=== PATIENT | male | born 1975 | race Caucasian/White ===

== ENCOUNTER 2017-04-15 12:29 | Emergency (ER) | payer BC ==
[2017-04-15 12:52] VITALS: BP 141/84
--- NOTE | 2017-04-15 14:01 | UC ---
Rachel Chang SooYoung, scribed for Jannet Almeida MD on 04/15/17 at 1329 . Respiratory Complaint HPI - HPI Summary HPI Summary: A 41 y/o M [place] [facility] [place]o sore throat onset five days ago. Pt reports rhinorrhea, diffuse body aches onset yesterday, post-nasal drip, mild bilat ear ache, sinus pain, chills. Pt denies fever, rash. He did get the flu shot this year. Pt states thought was getting darin, but yesterday started to feel "real bad." Pt reports sinus congestion, cough with yellow sputum. Pt is concerned about infection that may infect his immuno-compromised daughter and mother. States wants to know if they need tamiflu (daughter IDDM, mom scleroderma) He notes his coworkers have been ill recently. He hasn't taken any OTC meds. Non- smoker, non drinker. Patient's medication reviewed this visit. - History of Current Complaint Chief Complaint: UCRespiratory Stated Complaint: SORE THROAT,STUFFY NOSE,ACHES Time Seen by Provider: 04/15/17 13:15 Hx Obtained From: Patient Onset/Duration: Gradual Onset, Lasting Days, Still Present Timing: Constant Severity Initially: Moderate Severity Currently: Moderate Pain Intensity: 5 Pain Scale Used: 0-10 Numeric Character: Cough: Productive - yellow/green Associated Signs And Symptoms: Positive: Chills, URI, Sinus Discomfort. Negative: Fever - Allergies/Home Medications Allergies/Adverse Reactions: Allergies Allergy/AdvReac Type Severity Reaction Status Date / Time No Known Allergies Allergy Verified 11/20/15 10:05 PMH/Surg Hx/FS Hx/Imm Hx Previously Healthy: Yes - Surgical History Surgical History: None - Family History Known Family History: Positive: Cardiac Disease Family History: noncontributory - Social History Occupation: Employed Full-time Lives: With Family Alcohol Use: Rare Substance Use Type: None Smoking Status (MU): Never Smoked Tobacco - Immunization History Most Recent Influenza Vaccination: GOT IT FOR THIS SEASON Review of Systems Constitutional: Chills, Fatigue Skin: Negative Eyes: Negative ENT: Sore Throat, Ear Ache, Nasal Discharge - and post-nasal drip, Other - sinus pain Respiratory: Cough - yellow sputum Cardiovascular: Negative Gastrointestinal: Negative Genitourinary: Negative Motor: Negative Neurovascular: Negative Musculoskeletal: Other: - pos: general body aches Neurological: Negative Psychological: Negative All Other Systems Reviewed And Are Negative: Yes Physical Exam Triage Information Reviewed: Yes Appearance: Well-Appearing - congestion, cough, Well-Nourished Vital Signs: Initial Vital Signs Temp 98.8 F 04/15/17 12:49 Pulse 95 04/15/17 12:49 Resp 17 04/15/17 12:49 BP 141/84 04/15/17 12:49 Pulse Ox 99 04/15/17 12:49 Vital Signs Reviewed: Yes Eye Exam: Normal Eyes: Positive: Conjunctiva Clear ENT: Positive: Pharynx normal, Nasal congestion - turbinates inflammed + PND no erythema, no exudate, Nasal drainage. Negative: TMs normal - + fluid b/l TM R>L no erythema Dental Exam: Normal Neck exam: Normal Neck: Positive: Supple, Nontender, No Lymphadenopathy Respiratory Exam: Normal Respiratory: Positive: Chest non-tender, Lungs clear, Normal breath sounds, No respiratory distress Cardiovascular Exam: Normal Cardiovascular: Positive: RRR, No Murmur Abdominal Exam: Normal Abdomen Description: Positive: Nontender, No Organomegaly, Soft Bowel Sounds: Positive: Present Musculoskeletal Exam: Normal Neurological Exam: Normal Psychological Exam: Normal UC Diagnostic Evaluation - Laboratory O2 Sat by Pulse Oximetry: 99 Re-Evaluation - Re-Evaluation First Eval Comment: reviewed labs with pt - neg strep,neg flu. will give z pack for sinusitis, bronchitis. flonase. secretion precautions. pt comfortable and in agreement with plan Respiratory Course/Dx - Course Course Of Treatment: Blood pressure noted and patient informed to follow up with PCP. Pt with head congesiton, productive cough increasing x 6 days. Pt with fluid in ears, boggy turbinates with PND Pt with family who are immunocompromised. Will check flu, strep. if neg, anticipate abx, flonase - Differential Dx/Diagnosis Provider Diagnoses: sinusitis. URI Discharge - Discharge Plan Condition: Stable Disposition: HOME Prescriptions: Azithromycin TAB* [Zithromax TAB (Z-JAKOB) 250 mg #6 tabs] 2 tab PO .TODAY, THEN 1 DAILY #1 jakob Fluticasone NASAL SPRAY 50MCG* [Flonase NASAL SPRAY 50MCG*] 1 spray BOTH NARES DAILY #1 btl Patient Education Materials: Sinusitis (ED) Referrals: Vibha Glasgow MD [Primary Care Provider] - Additional Instructions: - Stay well hydrated. Drink plenty of non-alcoholic, non-caffinated beverages - Use nasal spray as prescribed - Okay to take decongestant such as Claritin-D, Frida-D - Take antibiotics as prescribed until gone - After you have been on antibiotics for 2 days - change your toothbrush and your pillowcase. These infections are spread by secretions - do NOT share eating or drinking utensils - clean items you share with other people such as cell phones, computer mouse, TV remote, computer tablets, etc - If your symptoms persist, contact your doctor to schedule a follow-up appointment. Contact your doctor or return with questions or concerns The documentation as recorded by the Rachel frank SooYoung accurately reflects the service I personally performed and the decisions made by me, Jannet Almeida MD.
== END 2017-04-15 14:31 | disposition home or self-care (01) ==
LOC: UCEAST 12:29
DX: J32.9 Chronic sinusitis, unspecified (principal); J06.9 Acute upper respiratory infection, unspecified
CPT/HCPCS: 87502; 87651; 99211; G0463

== ENCOUNTER 2018-11-06 14:13 | Emergency (ER) | payer BC ==
[2018-11-06 14:54] VITALS: BP 132/89
--- NOTE | 2018-11-06 17:38 | UC ---
UC General HPI - HPI Summary HPI Summary: 2-3 DAYS OF MUTED SENSATION TO RIGHT ANTERIOR THIGH. DENIES ANY INJURY OR TRAUMA. 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 HAS SOME SLIGHT BRUISING TO THE AREA BUT DENIES ANY RASHES. NO PAIN. NO FEVER. NO FOCAL WEAKNESS. NO NUMBNESS OR TINGLING IN THE DISTAL EXTREMITIES. DENIES ANY SADDLE ANESTHESIA OR LOSS OF BOWEL/BLADDER CONTROL. - History of Current Complaint Chief Complaint: UCLowerExtremity Stated Complaint: LEG NUMBNESS Time Seen by Provider: 11/06/18 14:45 Hx Obtained From: Patient Onset/Duration: Gradual Onset, Lasting Days, Still Present Timing: Constant Onset Severity: Mild Current Severity: Mild Pain Intensity: 0 Associated Signs & Symptoms: Negative: Abdominal Pain, Dizziness, Fever, Syncope , Weakness - Allergy/Home Medications Allergies/Adverse Reactions: Allergies Allergy/AdvReac Type Severity Reaction Status Date / Time No Known Allergies Allergy Verified 11/06/18 14:54 Home Medications: Home Medications NK [No Home Medications Reported] 11/06/18 [History Confirmed 11/06/18] PMH/Surg Hx/FS Hx/Imm Hx Previously Healthy: Yes - Surgical History Surgical History: None - Family History Known Family History: Positive: Cardiac Disease - Social History Alcohol Use: Occasionally Substance Use Type: None Smoking Status (MU): Never Smoked Tobacco - Immunization History Most Recent Influenza Vaccination: GOT IT FOR THIS SEASON Review of Systems All Other Systems Reviewed And Are Negative: Yes Constitutional: Positive: Negative Skin: Positive: Bruising Respiratory: Positive: Negative Cardiovascular: Positive: Negative Gastrointestinal: Positive: Negative Neurological: Positive: Paresthesia Physical Exam Triage Information Reviewed: Yes Appearance: Well-Appearing, No Pain Distress, Well-Nourished Vital Signs: Initial Vital Signs Temp 97.9 F 11/06/18 14:47 Pulse 82 11/06/18 14:47 Resp 16 11/06/18 14:47 BP 132/89 11/06/18 14:47 Pulse Ox 99 11/06/18 14:47 Vital Signs Reviewed: Yes Eyes: Positive: Conjunctiva Clear ENT: Positive: Hearing grossly normal Neck: Positive: Supple Respiratory: Positive: No respiratory distress, No accessory muscle use Cardiovascular: Positive: Pulses Normal Abdomen Description: Positive: Soft Musculoskeletal: Positive: ROM Intact, No Edema, Other: - NOT TENDER OVER SOFT TISSUES OR BONES OF RLE Neurological: Positive: Alert, Other: - SENSATION INTACT TO SHARP/DULL RIGHT ANTERIOR THIGH BUT PT REPORTS IT FEELS "DIFFERENT" Psychological: Positive: Age Appropriate Behavior Skin: Positive: Other - FAINT BRUISING OVER INVOLVED AREA RIGHT ANTERIOR THIGH Course/Dx - Diagnoses Provider Diagnosis: Paresthesia of right leg Discharge - Sign-Out/Discharge Documenting (check all that apply): Patient Departure All imaging exams completed and their final reports reviewed: No Studies - Discharge Plan Condition: Stable Disposition: HOME Patient Education Materials: Paresthesia (ED) Referrals: Marcus Gonzalez MD [Medical Doctor] - 1 Week Vibha Glasgow MD [Primary Care Provider] - 1 Week Additional Instructions: UNCLEAR ETIOLOGY OF YOUR SYMPTOMS TODAY. CONSIDER SOME TYPE OF NERVE PALSY. HOPEFULLY THIS WILL RESOLVE IN A FEW DAYS. CALL YOUR PCP AND NEURO TO SCHEDULE APPTS FOR EVALUATION. YOU MAY BENEFIT FROM IMAGING. GO TO THE ER WITHOUT FAIL IF YOU DEVELOP SPREADING NUMBNESS, PAIN, SWELLING OF THE LEG, FEVER OR ANY OTHER CONCERNING SYMPTOMS. - Billing Disposition and Condition Condition: STABLE Disposition: Home
== END 2018-11-06 15:45 | disposition home or self-care (01) ==
LOC: UCEAST 14:13
DX: R20.2 Paresthesia of skin (principal)
CPT/HCPCS: 99211; G0463

== ENCOUNTER 2019-03-18 12:38 | Emergency (ER) | payer SELFPAY ==
[2019-03-18 13:03] VITALS: BP 135/87
[2019-03-18] MEDS ORDERED: Fluorescein Sodium TOPICAL* 1 MG TEST STRIP OPHTHALMIC ONE (13:03)
[2019-03-18] MEDS ORDERED: Tetracaine 0.5% OPTH.SOL 4 ML* 1 DROP BTL RIGHT EYE ONE (13:03)
--- NOTE | 2019-03-18 13:40 | UC ---
Eye Complaint HPI - HPI Summary HPI Summary: 43-year-old male comes in with a chief complaint of injury to the right eye. Just prior to arrival today at work patient was heating up some solder with a soldering iron which goes up to 700F when a piece of solder flew into his right eye. He immediately rinsed it for 15 minutes. He describes the eye is more of a discomfort not of pain. Denies any vision loss or change. He does not have any contacts. After the washing the discomfort has gradually increased but he still does not describe it as pain. He is worried about the possibility of foreign body in the eye. - History of Current Complaint Chief Complaint: UCEye Stated Complaint: EYE COMPLAINT Time Seen by Provider: 03/18/19 13:03 Pain Intensity: 0 - Allergies/Home Medications Allergies/Adverse Reactions: Allergies Allergy/AdvReac Type Severity Reaction Status Date / Time No Known Allergies Allergy Verified 03/18/19 13:03 PMH/Surg Hx/FS Hx/Imm Hx Previously Healthy: Yes - Surgical History Surgical History: None - Family History Known Family History: Positive: Cardiac Disease - Social History Alcohol Use: Occasionally Substance Use Type: None Smoking Status (MU): Never Smoked Tobacco - Immunization History Most Recent Influenza Vaccination: GOT IT FOR THIS SEASON Review of Systems All Other Systems Reviewed And Are Negative: Yes Constitutional: Positive: Negative Skin: Positive: Negative Eyes: Positive: Other - SEE HPI ENT: Positive: Negative Respiratory: Positive: Negative Cardiovascular: Positive: Negative Gastrointestinal: Positive: Negative Motor: Positive: Negative Neurovascular: Positive: Negative Musculoskeletal: Positive: Negative Neurological: Positive: Negative Psychological: Positive: Negative Is Patient Immunocompromised?: No Physical Exam Triage Information Reviewed: Yes Appearance: Well-Appearing, No Pain Distress, Well-Nourished Vital Signs: Initial Vital Signs Temp 98.0 F 03/18/19 12:57 Pulse 69 03/18/19 12:57 Resp 18 03/18/19 12:57 BP 135/87 03/18/19 12:57 Pulse Ox 96 03/18/19 12:57 Vital Signs Reviewed: Yes Eyes: Positive: Other: - PERRLA/EOMI, IRIS SYMMETRIC. GLOBES INTACT TO MY EXAM. IN RIGHT EYE TETRACAINE USED AND FLUORESCEIN STAIN; POSSIBLE 2MM UPTAKE AT 4-6 OCLOCK OVER THE IRIS. Eye Complaint Course/Dx - Course Course Of Treatment: On my examination the globe is intact. I did not see any foreign body. The patient's iris is Kailey and there is possible foreseen uptake over the iris. Because the injury occurred with high temperature piece of metal I recommended further evaluation and ophthalmology today. I attempted to call the make an appointment however there was some problems with telephone lines that was confirmed by the hospital nitrogen operator. Therefore I let the patient know to [place] [facility] [place] to get further evaluation. - Differential Dx/Diagnosis Provider Diagnosis: Corneal abrasion, right, Right eye injury Discharge - Sign-Out/Discharge Documenting (check all that apply): Patient Departure All imaging exams completed and their final reports reviewed: No Studies - Discharge Plan Condition: Stable Disposition: HOME Prescriptions: Tobramycin 0.3% OPHTH.ROD* 1 drop RIGHT EYE Q4H #1 btl Patient Education Materials: Corneal Abrasion (ED) Referrals: Vibha Glasgow MD [Primary Care Provider] - [facility] [Provider Group] Additional Instructions: [place] [facility] [place] GET REEVALUATED SOONER IF YOUR CONDITION WORSENS OR ANY QUESTIONS OR CONCERNS. - Billing Disposition and Condition Condition: STABLE Disposition: Home
== END 2019-03-18 13:48 | disposition home or self-care (01) ==
LOC: UCEAST 12:38
DX: S05.01XA Injury of conjunctiva and corneal abrasion without foreign body, right eye, initial encounter (principal); X58.XXXA Exposure to other specified factors, initial encounter; Y92.9 Unspecified place or not applicable; Y99.0 Civilian activity done for income or pay
CPT/HCPCS: 99212; A9270-GY; G0463